=== PATIENT | female | born 1985 | race African-American/Black ===

== ENCOUNTER 2017-05-15 17:02 | Emergency (ER) | payer SELFPAY ==
[~2017-05-15] VITALS: Ht 162.6 cm; Wt 68.0 kg
[2017-05-15 17:10] VITALS: BP 100/71
[2017-05-15] MEDS ORDERED: IBUPROFEN600 MG ORAL (17:32)
[2017-05-15 17:55] VITALS: BP 100/71
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
== END 2017-05-15 17:55 | disposition home or self-care (01) ==
LOC: EMR 17:23
DX: S39.82XA Other specified injuries of lower back, initial encounter (principal); V49.50XA Passenger injured in collision with unspecified motor vehicles in traffic accident, initial encounter; Y92.481 Parking lot as the place of occurrence of the external cause
CPT/HCPCS: 99283